=== PATIENT | female | born 1950 | race Caucasian/White ===

== ENCOUNTER 2025-01-06 10:46 | Emergency (ER) | payer MEDICARE, SELFPAY ==
[2025-01-06 10:55] VITALS: BP 176/69; PULSE 74; RESP 20; TEMP 36.9; O2SAT 96; BMI 43.3
--- NOTE | 2025-01-06 11:09 | CRLHL7_ITS ---
For Patients: As a result of the Century Cures Act, medical imaging exams and procedure reports are released immediately into your electronic medical record. You may view this report before your referring provider. If you have questions, please contact your health care provider. INDICATION: Right central retinal artery occlusion. TECHNIQUE: CTA head using intravenous contrast with bolus tracking, 3D angiographic rendering using maximum intensity projection (MIP) and images permanently archived. CTA neck using intravenous contrast with bolus tracking, 3D angiographic rendering using maximum intensity projection (MIP) and images permanently archived. FINDINGS: CTA head: There is minor intracranial atherosclerotic disease. There is normal opacification of the intracranial vasculature. There is no large vessel occlusion or significant intracranial stenosis. No aneurysm is identified. CTA neck: There is no significant carotid artery stenosis or dissection. There is no significant vertebral artery stenosis or dissection. Degenerative changes are noted in the cervical spine. IMPRESSION: No acute intracranial abnormality at CTA. No significant carotid or vertebral artery stenosis or dissection. Please note that all CT scans at this facility use dose modulation, iterative reconstruction, and/or weight-based dosing when appropriate to reduce radiation dose to as low as reasonably achievable. Dictated by Bhupendra Sutherland MD @ 01/06/2025 3:38:48 PM (Electronically Signed)
--- NOTE | 2025-01-06 11:09 | CRLHL7_ITS ---
For Patients: As a result of the Century Cures Act, medical imaging exams and procedure reports are released immediately into your electronic medical record. You may view this report before your referring provider. If you have questions, please contact your health care provider. INDICATION: Right central retinal artery occlusion. COMPARISON: None. TECHNIQUE: Noncontrast CT head. FINDINGS: Normal brain parenchymal morphology. No acute intracranial hemorrhage, acute infarct, focal edema, mass effect, or fracture. No midline shift. No abnormal ventricular dilatation. Normal calvarium and skull base. Visualized paranasal sinuses and mastoid air cells are clear. Normal orbits bilaterally. IMPRESSION: 1. No acute intracranial abnormality. Please note that all CT scans at this facility use dose modulation, iterative reconstruction, and/or weight-based dosing when appropriate to reduce radiation dose to as low as reasonably achievable. Dictated by William Waller MD @ 01/06/2025 11:56:38 AM (Electronically Signed)
--- NOTE | 2025-01-06 11:27 | ED.EYEPROB ---
HPI - Eye Problem General Date Seen: 01/06/25 Chief complaint: Eye Problems Stated complaint: Lost VA in Right Eye Time Seen by Provider: 01/06/25 10:48 Source: patient Mode of arrival: ambulatory Limitations: no limitations History of Present Illness HPI Narrative: Patient is a 74-year-old female presenting for loss of vision to her right eye. She states last night around 20:30 she still only lost vision to right eye. States she can see movement but that is about it of her right eye. She went to see Dr. Britton of [facility] about this today. Dr. Britton diagnosed her with a central retinal artery occlusion on the right. Had her sent to the emergency department for further workup. I spoke to Dr. Britton who recommends imaging and lab work in his lungs I within the some right she can be discharged with outpatient follow-up. Patient has never had vision issues before. Patient denies fevers, chills, chest pain, shortness of breath, abdominal pain, weakness, numbness, headache. States she had some issues with her vision initially when she use diagnosed with diabetes but since then has been doing better up until yesterday. Related Data Home Medications ?Medication ?Instructions ?Recorded ?Confirmed aspirin 81 mg chewable tablet 81 mg PO DAILY 01/06/25 01/06/25 gabapentin 300 mg capsule 600 mg PO HS 01/06/25 01/06/25 insulin glargine-yfgn 100 unit/mL 17 unit subcut QAM 01/06/25 01/06/25 (3 mL) subcutaneous pen letrozole 2.5 mg tablet 2.5 mg PO DAILY 01/06/25 01/06/25 levothyroxine 112 mcg tablet 224 mcg PO DAILY 01/06/25 01/06/25 losartan 50 mg-hydrochlorothiazide 1 tab PO DAILY 01/06/25 01/06/25 12.5 mg tablet metformin 500 mg tablet,extended 1,000 mg PO BIDWM 01/06/25 01/06/25 release 24 hr triamcinolone acetonide 0.1 % 1 applic topical BID PRN 01/06/25 01/06/25 topical cream Previous Rx's ?Medication ?Instructions ?Recorded clopidogrel 75 mg tablet (Plavix) 75 mg PO DAILY #30 tabs 01/06/25 Allergies Allergy/AdvReac Type Severity Reaction Status Date / Time prednisone AdvReac Intermediate Dizziness Verified 01/06/25 11:36 Review of Systems Status of ROS: Reports: 10 or more systems reviewed and unremarkable except as noted in History and below PFSH PFS Social History Smoking Status: Never smoker How often do you have a drink containing alcohol: monthly or less AUDIT-C Alcohol total score: 1 Non-prescribed substance use: denies use service: No Exam Narrative: Exam Narrative: Const: Well-nourished, Well-developed, in no distress Eyes: PERRL, no conjunctival injection, and symmetrical lids HENT: Atraumatic external nose and ears. Moist mucous membranes. Neck: Symmetric, trachea midline, No thyromegaly. CVS: RRR, No murmurs or gallops. Peripheral pulses 2+ and equal in all extremities RESP: Unlabored respiratory effort. Clear to auscultation bilaterally. GI: Nontender/Nondistended, No rebound or guarding. MSK:Extremities w/o deformity, Normal Active ROM Skin: Warm, Dry. No rashes or lesions. Neuro: Normal Muscle tone, No focal neurological deficits. Psych: Awake, Alert, & Oriented x3. Appropriate mood and affect. Const: Vital Signs, click to edit/add: Vital Signs - 24 hr 01/06/25 10:55 01/06/25 12:27 01/06/25 14:35 Temperature 98.5 F Pulse Rate [Pulse Oximeter] 74 87 78 Respiratory Rate 20 18 16 Blood Pressure [Ri ght Upper Arm] 176/69 H 140/86 H 125/65 Pulse Oximetry 96 97 97 Oxygen Delivery Me thod Room Air Room Air Room Air Course Vital Signs Vital signs: Initial Vital Signs Temperature 98.5 F 01/06/25 10:55 Temperature Source Temporal Artery Scan 01/06/25 10:55 Pulse Rate 74 01/06/25 10:55 Respiratory Rate 20 01/06/25 10:55 Blood Pressure 176/69 H 01/06/25 10:55 Blood Pressure Mean 104 01/06/25 10:55 Pulse Oximetry 96 01/06/25 10:55 Oxygen Delivery Method Room Air 01/06/25 10:55 Vital Signs Temperature 98.5 F 01/06/25 10:55 Pulse Rate 74 01/06/25 10:55 Respiratory Rate 20 10/05/25 10:55 Blood Pressure 176/69 H 01/06/25 10:55 Pulse Oximetry 96 01/06/25 10:55 Oxygen Delivery Method Room Air 01/06/25 10:55 Temperature 98.5 F 01/06/25 10:55 Pulse Rate 78 01/06/25 14:35 Respiratory Rate 16 01/06/25 14:35 Blood Pressure 125/65 01/06/25 14:35 Pulse Oximetry 97 01/06/25 14:35 Oxygen Delivery Method Room Air 01/06/25 14:35 Medications Administered Medications: Discontinued Medications Generic Name Dose Route Start Last Admin Trade Name Joshq PRN Reason Stop Dose Admin Clopidogrel Bisulfate 300 mg 01/06/25 12:55 01/06/25 13:33 Clopidogrel 300 Mg Tablet PO 01/06/25 12:56 300 mg ONCE ONE Administration MDM - Eye Problem MDM Narrative Medical decision making narrative: Patient is a 74-year-old female presenting to emergency department for vision loss to her right eye. Was diagnosed with a central retinal artery occlusion and sent to the emergency department for further evaluation. I did speak to Dr. Britton recommends last CT scan, ESR, CRP, CBC, lipid panel, PTT, INR. He also recommends doing a serum homocystine, and echo and a carotid ultrasound. These last 3 things we cannot do in the emergency department and wanted to be outpatient. He states that is okay. Does not think the patient needs an MRI. I asked about potentially starting tPA and he recommended against it as it has not been found be beneficial especially considering how long she has had the vision issues. Lab work returns showing no acute concerning abnormalities. No signs of polycythemia vera, temporal arteritis, or AFib. CTs and CTAs reviewed myself the radiologist showed no acute concerning abnormalities. EKG shows no concerning abnormalities. I spoke to Dr. Chatman, of [facility] he recommends an MRI and echocardiogram. We are able to the MRI now but echocardiogram cannot be done until tomorrow. He also recommends treating with Plavix. Patient takes 81 mg aspirin he says no further aspirin is necessary. I did speak to the hospitalist to states that we may not even be able to be echo tomorrow and for sure likely 1 could report until Tuesday. Due to this I spoke to Neurology again he states with the otherwise unremarkable MRI the patient can be discharged with outpatient echo. Patient is agreeable to this plan. Lab Data Labs: Lab Results 01/06/25 01/06/25 Range/Units 11:12 11:20 WBC 8.54 (4.50-11.00) K/uL RBC 4.56 (4.00-5.20) m/uL Hgb 13.7 (12.0-16.0) gm/dL Hct 40.1 (33.0-51.0) % MCV 88 (80-100) fL MCH 30 (26-34) pg MCHC 34 (32-36) gm/dL RDW Coeff of Kevin 13.2 (11.5-15.5) % Plt Count 192 (140-440) K/uL Neut % (Auto) 78.9 H (42.0-72.0) % Lymph % (Auto) 11.9 L (20-44) % [place] % (Auto) 6.7 (0.0-11.0) % Eos % (Auto) 1.9 (0.0-7.0) % Baso % (Auto) 0.4 (0.0-3.0) % Neut # (Auto) 6.70 (1.7-7.0) K/uL Lymph # (Auto) 1.00 (0.90-2.90) K/uL [place] # (Auto) 0.60 (0.00-0.90) K/UL Eos # (Auto) 0.16 (0.00-0.50) K/uL Baso # (Auto) 0.03 (0.00-0.30) K/uL Abs Immat Gran (auto) 0.02 (0.00-0.30) K/uL Imm/Tot Granulo (auto) 0.2 % ESR 12 (2-20) mm/hr INR 0.95 (0.91-1.10) APTT 27 (23-33) Seconds Sodium 138 (135-149) mmol/L Potassium 3.9 (3.6-5.1) mmol/L Chloride 102 (96-114) mmol/L Carbon Dioxide 29 (20-32) mmol/L Anion Gap 7 (7-15) mEq/L BUN 13 (7-30) mg/dL Creatinine 0.8 (0.5-1.5) mg/dL Estimated Creat Clear 51.30 Estimated GFR 78 ml/min Glucose 186 H (60-115) mg/dL Calcium 9.9 (8.4-10.6) mg/dL C-Reactive Protein 0.9 (0.5-1.0) mg/dL Triglycerides 229 H (40-149) mg/dL Cholesterol 162 (90-199) mg/dL LDL Cholesterol, Calc 80 (<100) mg/dL HDL Cholesterol 36 L (>=50) mg/dL POC Creatinine 0.8 (0.6-1.3) mg/dl Imaging Data CT scan - head: Attestation: I have reviewed the pertinent imaging results. Radiologist's impression: 1. No acute intracranial abnormality. Please note that all CT scans at this facility use dose modulation, iterative reconstruction, and/or weight-based dosing when appropriate to reduce radiation dose to as low as reasonably achievable. Dictated by William Waller MD @ 01/06/2025 11:56:38 AM CTA head and neck: Attestation: I have reviewed the pertinent imaging results. Radiologist's impression: Preliminary Report: INDICATION: Central retinal artery occlusion. Comparison none. FINDINGS: CTA head: Bilateral carotid siphons and mi'kmaq Garcia are patent. Major bilateral intracranial arterial circulations are patent with no focal high-grade stenosis, large vessel occlusion, or aneurysm. CTA neck: Bilateral carotid artery circulations are patent from the origin to the skullbase. No high-grade stenosis. Patent bilateral vertebral artery circulations from the origin to the vertebrobasilar junction. No high-grade stenosis or dissection. Other: Normal alignment of cervical spine. Cervical spondylosis. No prevertebral soft tissue swelling. Lung apices are clear. Read by:?William Waller MD @01/06/2025 12:06:33 PM MR Brain: Attestation: I have reviewed the pertinent imaging results. Radiologist's impression: 1. No acute intracranial abnormality 2. Normal brain parenchymal morphology. Few scattered foci of T2 signal within the white matter of both cerebral hemispheres are nonspecific but likely represent chronic deep white matter small vessel ischemic changes 3. No acute or chronic intracranial hemorrhage Dictated by William Waller MD @ 01/06/2025 2:17:31 PM ECG Data Attestation: I personally reviewed and interpreted this ECG as follows: Prior ECG tracings: not available for review Interpretation: Normal sinus rhythm with a rate of 68 beats per minute, normal intervals, normal axis, no ST or T-wave abnormalities Discharge Plan Discharge Clinical Impression: Central retinal artery occlusion of right eye Patient Disposition: Home, Self-Care Condition: Stable Additional Instructions: I recommend close follow-up with the primary care provider. Call them tomorrow and inform them that neurology wants you to have an echocardiogram. You will also need ultrasounds a few carotid vasculature. Use the Plavix daily. Continue to take your aspirin. Prescriptions: New clopidogrel [Plavix] 75 mg tablet 75 mg PO DAILY Qty: 30 0RF No Action triamcinolone acetonide 0.1 % cream 1 applic topical BID PRN gabapentin 300 mg capsule 600 mg PO HS letrozole 2.5 mg tablet 2.5 mg PO DAILY losartan-hydrochlorothiazide 50-12.5 mg tablet 1 tab PO DAILY metformin 500 mg tablet extended release 24 hr 1,000 mg PO BIDWM levothyroxine 112 mcg tablet 224 mcg PO DAILY insulin glargine-yfgn 100 unit/mL (3 mL) insulin pen 17 unit subcut QAM aspirin 81 mg tablet,chewable 81 mg PO DAILY Follow Up/Referrals: Pablo Carvajal MD [Primary Care Provider, Family Practice] Stand Alone Forms: [facility] Info Instructions
[2025-01-06 11:31] LABS: Creatinine, Point-of-Care* 0.8 mg/dl (0.6-1.3)
[2025-01-06 11:35] LABS: Hematocrit* 40.1 % (33.0-51.0); Hemoglobin* 13.7 gm/dL (12.0-16.0); Immature Granulocytes Abs Auto 0.02 K/uL (0.00-0.30); Immature Granulocytes Pct Auto 0.2 %; Mean Corpuscular HGB Conc 34 gm/dL (32-36); Mean Corpuscular Hemoglobin 30 pg (26-34); Mean Corpuscular Volume 88 fL (80-100); RDW Coefficient of Variation % 13.2 % (11.5-15.5); Red Blood Count* 4.56 m/uL (4.00-5.20); White Blood Count* 8.54 K/uL (4.50-11.00)
[2025-01-06 11:43] LABS: Chloride* 102 mmol/L (96-114); Potassium* 3.9 mmol/L (3.6-5.1); Sodium* 138 mmol/L (135-149)
[2025-01-06 11:45] LABS: Blood Urea Nitrogen* 13 mg/dL (7-30); Creatinine* 0.8 mg/dL (0.5-1.5); Est. Creatinine Clearance* 51.30; Estimated Glomerular Filt Rate 78 ml/min; Lymphocytes Absolute Auto 1.00 K/uL (0.90-2.90); Slide Review Reflex No
[2025-01-06 11:46] LABS: Anion Gap 7 mEq/L (7-15); Calcium* 9.9 mg/dL (8.4-10.6); Carbon Dioxide* 29 mmol/L (20-32); Cholesterol* 162 mg/dL (90-199); Glucose* 186 mg/dL (60-115); Triglycerides* 229 mg/dL (40-149)
[2025-01-06 11:47] LABS: HDL Cholesterol* 36 mg/dL (>=50)
[2025-01-06 12:10] LABS: INR 0.95 (0.91-1.10); Prothrombin Time 13.4 Seconds
[2025-01-06 12:17] LABS: Erythrocyte SedimentationRate* 12 mm/hr (2-20)
[2025-01-06 12:27] VITALS: BP 140/86; PULSE 87; RESP 18; O2SAT 97
--- NOTE | 2025-01-06 13:02 | CRLHL7_ITS ---
For Patients: As a result of the Century Cures Act, medical imaging exams and procedure reports are released immediately into your electronic medical record. You may view this report before your referring provider. If you have questions, please contact your health care provider. INDICATION: Right central retinal artery occlusion. COMPARISON: CT head from earlier today. TECHNIQUE: Multiplanar T1, T2, FLAIR and diffusion-weighted imaging. FINDINGS: Normal brain parenchymal morphology. Few scattered foci of T2/FLAIR signal hyperintensity within the white matter of both cerebral hemispheres a nonspecific but likely represent chronic deep white matter small ischemic changes. No intracranial hemorrhage. No abnormal ventricular dilatation. Intracranial vascular flow voids are preserved. No mass effect. No midline shift. No restricted diffusion to suggest acute ischemia. No susceptibility artifact of remote hemorrhage. Bilateral orbits are unremarkable. Normal appearing sella. Visualized paranasal sinuses and mastoid air cells are unremarkable. IMPRESSION: 1. No acute intracranial abnormality 2. Normal brain parenchymal morphology. Few scattered foci of T2 signal within the white matter of both cerebral hemispheres are nonspecific but likely represent chronic deep white matter small vessel ischemic changes 3. No acute or chronic intracranial hemorrhage Dictated by William Waller MD @ 01/06/2025 2:17:31 PM (Electronically Signed)
[2025-01-06] MEDS: CLOPIDOGREL 300 MG TABLET PO (13:33)
[2025-01-06 14:35] VITALS: BP 125/65; PULSE 78; RESP 16; O2SAT 97
== END 2025-01-06 15:03 | disposition home or self-care (01) ==
PROVIDERS: Emergency Provider Student in an Organized Health Care Education/Training Program; PCP Student in an Organized Health Care Education/Training Program
DX: H34.11 Central retinal artery occlusion, right eye (principal)
CPT/HCPCS: 36415; 70450; 70496; 70498; 70551; 80048; 80061; 82565; 85025; 85610; 85651; 85730; 86140; 93005; 99284; 99285; G0427; A9270; Q9967